=== PATIENT | female | born 1970 | race Caucasian/White ===

== ENCOUNTER 2017-12-02 16:56 | Emergency (ER) | payer BC ==
[~2017-12-02] VITALS: Ht 154.9 cm; Wt 111.7 kg
[2017-12-02 18:02] LABS: BASOPHILS # (AUTO) 0.05 x10^3/uL (0-0.1); BASOPHILS % (AUTO) 0 % (0-1); EOSINOPHILS # (AUTO) 0.09 x10^3/uL (0-0.4); EOSINOPHILS % (AUTO) 1 % (1-7); LYMPHOCYTES # (AUTO) 2.48 x10^3/uL (1-3.4); LYMPHOCYTES % (AUTO) 20 % (22-44); MD NO; MEAN CORPUSCULAR HEMOGLOBIN 29.6 pg (27.0-34.8); MEAN CORPUSCULAR HGB CONC 33.9 g/dL (32.4-35.8); MEAN CORPUSCULAR VOLUME 87.1 fL (80-100); MEAN PLATELET VOLUME 7.7 fL (7.4-10.4); MONOCYTES # (AUTO) 0.83 x10^3/uL (0.2-0.8); MONOCYTES % (AUTO) 7 % (2-9); NEUTROPHILS % (AUTO) 72 % (42-75); PLATELET COUNT 352 x10^3/uL (130-400); RED BLOOD COUNT 4.71 x10^6/uL (3.82-5.3); RED CELL DISTRIBUTION WIDTH 14.7 % (9.6-15.2)
[2017-12-02 18:03] LABS: CULTURE INDICATED? NO; MICROSCOPIC NOT IND
[2017-12-02 18:06] LABS: ALBUMIN 3.2 g/dL (3.4-5.0); ANION GAP 7 mmol/L (5-15); CALCIUM 8.5 mg/dL (8.5-10.1); CHLORIDE 112 mmol/L (98-107)
[2017-12-02 18:09] LABS: ALANINE AMINOTRANSFERASE 25 U/L (12-78); ALKALINE PHOSPHATASE 104 U/L (45-117); BILIRUBIN,TOTAL 0.5 mg/dL (0.2-1.0); CREATININE 0.95 mg/dL (0.55-1.02); TOTAL PROTEIN 7.6 g/dL (6.4-8.2)
[2017-12-02] MEDS ORDERED: LISI5TAB7 PO (18:17)
[2017-12-02 18:41] VITALS: BP 132/78
== END 2017-12-02 18:51 | disposition home or self-care (01) ==
LOC: ED 18:00
DX: K62.5 Hemorrhage of anus and rectum (principal); K64.8 Other hemorrhoids; I10 Essential (primary) hypertension
CPT/HCPCS: 36415; 74021; 80053; 81003; 85025; 99285

== ENCOUNTER 2020-06-12 16:28 | Emergency (ER) | payer BC, OTHER ==
[~2020-06-12] VITALS: Ht 154.9 cm; Wt 123.3 kg
[~2020-06-12 16:28] MED LIST: LISI5TAB7 PO
--- NOTE | 2020-06-12 17:01 | NUR ---
PT AMBULATORY TO ROOM 8 W/ C/O RLQ ABD PAIN STARTED LAST NIGHT AND HAS BEEN WORSENING. PT DENIES HEMATURIA. PT DENIES N/V/D. PT RESTING ON GURNEY. NADN. MONITORS APPLIED. VSS. WARM BLANKET PROVIDED. ERP DR. MONAE AT BEDSIDE FOR EVAL.
[2020-06-12] MEDS ORDERED: ONDANSETRON 2MG/ML, 2ML ONE (17:10)
[2020-06-12] MEDS ORDERED: MORPHINE SULFATE 4 MG/ML, 1ML ONE ×2 (17:10→17:54)
[2020-06-12] MEDS: MORPHINE SULFATE 4 MG/ML, 1ML IVPush PRN ×2 (17:13→17:56)
[2020-06-12] MEDS ORDERED: ONDANSETRON 2MG/ML, 2ML IVPush ONE (17:30)
[2020-06-12 17:31] LABS: MICROSCOPIC NOT IND
[2020-06-12 17:48] LABS: BASOPHILS % (AUTO) 0 % (0-1); EOSINOPHILS % (AUTO) 1 % (1-7); LYMPHOCYTES % (AUTO) 21 % (22-44); MEAN CORPUSCULAR HEMOGLOBIN 28.7 pg (27.0-34.8); MEAN PLATELET VOLUME 7.6 fL (7.4-10.4); MONOCYTES % (AUTO) 10 % (2-9); NEUTROPHILS % (AUTO) 67 % (42-75); PLATELET COUNT 351 x10^3/uL (130-400); RED BLOOD COUNT 5.14 x10^6/uL (3.82-5.3); RED CELL DISTRIBUTION WIDTH 15.2 % (9.6-15.2)
[2020-06-12 17:52] LABS: MD NO
[2020-06-12 18:00] LABS: ALANINE AMINOTRANSFERASE 22 U/L (12-78); ALBUMIN 3.4 g/dL (3.4-5.0); ANION GAP 8 mmol/L (5-15); CALCIUM 8.7 mg/dL (8.5-10.1); CHLORIDE 106 mmol/L (98-107); CREATININE 0.96 mg/dL (0.55-1.02)
[2020-06-12] MEDS ORDERED: SODIUM CHLORIDE FLUSH 10ML SYR IVF ONE (18:00)
[2020-06-12 18:03] LABS: ALKALINE PHOSPHATASE 109 U/L (45-117); BILIRUBIN,TOTAL 0.5 mg/dL (0.2-1.0); TOTAL PROTEIN 7.9 g/dL (6.4-8.2)
--- NOTE | 2020-06-12 18:08 | NUR ---
[facility] MEDICATED PER [facility].
[2020-06-12] MEDS ORDERED: OMNIPAQUE 350 MG/ML, 100ML BOTTLE ONE (18:30)
[2020-06-12 18:46] VITALS: BP 118/67
--- NOTE | 2020-06-12 18:46 | NUR ---
PT RESTING ON GURNEY. NADN. MARIO.
== END 2020-06-12 19:27 | disposition home or self-care (01) ==
LOC: ED 17:39
DX: R10.31 Right lower quadrant pain (principal); I10 Essential (primary) hypertension; Z94.9 Transplanted organ and tissue status, unspecified; Z90.710 Acquired absence of both cervix and uterus
CPT/HCPCS: 36415; 74177; 80053; 81003; 85025; 96374; 96375; 96376; 99285; J2270; J2405; Q9967